=== PATIENT | male | born 1955 | race Caucasian/White ===

== ENCOUNTER 2022-07-21 07:09 | Emergency (ER) | payer MEDICARE, BC ==
[~2022-07-21 07:09] MED LIST: Etomidate 2 MG/ML 10 ML SDV IVPUSH ONE
[2022-07-21] MEDS ORDERED: Sodium Chloride 0.9% 1,000 ML IV ONE (07:15)
[2022-07-21] MEDS: Etomidate 2 MG/ML 10 ML SDV ONE ×2 (07:16→09:29)
[2022-07-21] MEDS ORDERED: Succinylcholine 200 MG/10 ML MDV IV ONE (07:17)
[2022-07-21] MEDS ORDERED: Sodium Chloride 0.9% 10 ML Syringe FLUSH PRN (07:17)
[2022-07-21] MEDS: Sodium Chloride 0.9% 1,000 ML ONE (07:18)
[2022-07-21 07:27] LABS: BASOPHILS ABSOLUTE AUTO 0.04 10^3/uL (0.00-0.10); BASOPHILS PERCENT AUTO 0.2 % (0.0-1.0); EOSINOPHILS ABSOLUTE AUTO 0.01 10^3/uL (0.10-0.30); HEMATOCRIT 33.6 % (40.0-52.0); HEMOGLOBIN 10.6 g/dL (13.0-17.0); IMMATURE GRAN PERCENT AUTO 0.4 % (0.0-5.0); LYMPHOCYTES ABSOLUTE AUTO 2.96 10^3/uL (1.00-4.00); MEAN CORPUSCULAR HEMOGLOBIN 28.1 pg (27.0-31.0); MEAN CORPUSCULAR HGB CONC 31.5 g/dL (32.0-36.0); MEAN CORPUSCULAR VOLUME 89.1 fL (82.0-92.0); MEAN PLATELET VOLUME 10.4 fL (7.4-10.4); MONOCYTES ABSOLUTE AUTO 2.26 10^3/uL (0.10-0.80); MONOCYTES PERCENT AUTO 9.9 % (2.0-8.0); NEUTROPHILS ABSOLUTE AUTO 17.39 10^3/uL (2.50-7.00); NEUTROPHILS PERCENT AUTO 76.5 % (50.0-70.0); PLATELET COUNT,PLT 306 10^3/uL (150-400); RED BLOOD CELL COUNT 3.77 10^6/uL (4.50-6.00); RED CELL DISTRIBUTION WIDTH 12.4 % (11.5-14.5); WHITE BLOOD CELL COUNT,WBC 22.76 10^3/uL (5.00-10.00)
[2022-07-21] MEDS: Midazolam 1 MG/ML 2 ML SDV IVPUSH ONE ×2 (07:37→08:13)
[2022-07-21 07:39] LABS: ALANINE AMINOTRANSFERASE,ALT 20 U/L (14-63); ALBUMIN 3.03 g/dL (3.40-5.00); ALKALINE PHOSPHATASE 59 U/L (46-116); ANION GAP 14.3 mmol/L (5-15); ASPARTATE AMNIOTRANSFERASE,AST 20 U/L (15-37); BILIRUBIN TOTAL 0.3 mg/dL (0.2-1.0); CALCIUM 7.7 mg/dL (8.7-10.3); CARBON DIOXIDE,CO2 24.5 mmol/L (21.0-32.0); CHLORIDE,CL 100 mmol/L (98-107); CREATININE 5.62 mg/dL (0.51-1.17); GLUCOSE RANDOM 298 mg/dL (70-140); POTASSIUM,K 4.8 mmol/L (3.5-5.1); PROTEIN TOTAL,TP 6.8 g/dL (6.4-8.2); SODIUM,NA 134 mmol/L (136-145)
[2022-07-21] MEDS ORDERED: fentaNYL 100 MCG/2 ML SDV ONE (07:39)
[2022-07-21] MEDS ORDERED: fentaNYL 100 MCG/2 ML SDV IVPUSH ONE (07:42)
[2022-07-21 07:44] LABS: BLOOD UREA NITROGEN,BUN 88 mg/dL (7-18); ESTIMATED GFR 11 mL/min (>=60)
[2022-07-21] MEDS ORDERED: Rocuronium 50 MG/5 ML Vial IV ONE (07:48)
[2022-07-21] MEDS ORDERED: Heparin Sodium 5,000 Units/ML Vial IVPUSH ONE (07:54)
[2022-07-21] MEDS ORDERED: Heparin Sodium/D5W 250 ML IV SCH (08:00)
[2022-07-21] MEDS ORDERED: Heparin Sodium/D5W 250 ML ONE (08:12)
[2022-07-21] MEDS ORDERED: Piperacillin/Tazobactam 4.5 GM in Sodium Chloride 0.9% 100 ML IV ONE (08:14)
[2022-07-21] MEDS ORDERED: Iopamidol 755 Mg/ML 100 ML Bottle IV ONE (08:19)
[2022-07-21] MEDS ORDERED: Sodium Chloride 0.9% 100 ML IV SCH (08:30)
[2022-07-21] MEDS ORDERED: Midazolam 1 MG/ML 2 ML SDV ONE (09:03)
[2022-07-24] MEDS: Sodium Chloride 0.9% 1,000 ML ONE (12:26)
== END 2022-07-21 08:25 ==
LOC: KA.ED 07:09
DX: R79.1 Abnormal coagulation profile (principal); R77.8 Other specified abnormalities of plasma proteins; E11.22 Type 2 diabetes mellitus with diabetic chronic kidney disease; N18.5 Chronic kidney disease, stage 5; E11.21 Type 2 diabetes mellitus with diabetic nephropathy; I10 Essential (primary) hypertension; E11.42 Type 2 diabetes mellitus with diabetic polyneuropathy; M19.90 Unspecified osteoarthritis, unspecified site; E66.9 Obesity, unspecified; Z79.4 Long term (current) use of insulin; Z79.82 Long term (current) use of aspirin; Z79.899 Other long term (current) drug therapy
CPT/HCPCS: 31500; 36415; 70450; 71045; 71275; 80053; 84484; 85025; 85379; 85730; 93010; 96374; 96375; 99284; 99285-25; J0330; J1644; J2250; J2543; J3010; J3490; J7030; Q3014; Q9967

== ENCOUNTER 2023-01-07 10:51 | Emergency (ER) | payer MEDICARE, BC ==
[2023-01-07 11:49] LABS: BASOPHILS ABSOLUTE AUTO 0.07 10^3/uL (0.00-0.10); BASOPHILS PERCENT AUTO 0.6 % (0.0-1.0); EOSINOPHILS ABSOLUTE AUTO 0.07 10^3/uL (0.10-0.30); EOSINOPHILS PERCENT AUTO 0.6 % (1.0-3.0); HEMATOCRIT 33.3 % (40.0-52.0); HEMOGLOBIN 11.2 g/dL (13.0-17.0); IMMATURE GRAN ABSOLUTE AUTO 0.02 10^3/uL (0.00-0.50); IMMATURE GRAN PERCENT AUTO 0.2 % (0.0-5.0); LYMPHOCYTES ABSOLUTE AUTO 0.86 10^3/uL (1.00-4.00); LYMPHOCYTES PERCENT AUTO 6.8 % (20.0-40.0); MEAN CORPUSCULAR HEMOGLOBIN 29.2 pg (27.0-31.0); MEAN CORPUSCULAR HGB CONC 33.6 g/dL (32.0-36.0); MEAN CORPUSCULAR VOLUME 86.7 fL (82.0-92.0); MEAN PLATELET VOLUME 8.7 fL (7.4-10.4); MONOCYTES ABSOLUTE AUTO 0.73 10^3/uL (0.10-0.80); MONOCYTES PERCENT AUTO 5.8 % (2.0-8.0); NEUTROPHILS ABSOLUTE AUTO 10.87 10^3/uL (2.50-7.00); PLATELET COUNT,PLT 173 10^3/uL (150-400); RED BLOOD CELL COUNT 3.84 10^6/uL (4.50-6.00); RED CELL DISTRIBUTION WIDTH 13.8 % (11.5-14.5); WHITE BLOOD CELL COUNT,WBC 12.62 10^3/uL (5.00-10.00)
[2023-01-07 12:05] LABS: ALANINE AMINOTRANSFERASE,ALT 19 U/L (14-63); ALBUMIN 2.91 g/dL (3.40-5.00); ALKALINE PHOSPHATASE 87 U/L (46-116); ANION GAP 16.2 mmol/L (5-15); ASPARTATE AMNIOTRANSFERASE,AST 18 U/L (15-37); BILIRUBIN TOTAL 0.5 mg/dL (0.2-1.0); CALCIUM 8.8 mg/dL (8.7-10.3); CARBON DIOXIDE,CO2 25.6 mmol/L (21.0-32.0); CHLORIDE,CL 100 mmol/L (98-107); CREATININE 7.27 mg/dL (0.51-1.17); GLUCOSE RANDOM 170 mg/dL (70-140); POTASSIUM,K 3.8 mmol/L (3.5-5.1); PROTEIN TOTAL,TP 6.9 g/dL (6.4-8.2); SODIUM,NA 138 mmol/L (136-145)
[2023-01-07 12:10] LABS: B-TYPE NATRIURETIC PEPTIDE,BNP 2620 pg/mL (0-100)
[2023-01-07 12:12] LABS: BLOOD UREA NITROGEN,BUN 61 mg/dL (7-18); ESTIMATED GFR 8 mL/min (>=60)
[2023-01-07 12:43] LABS: INR 2.8 (0.9-1.1)
[2023-01-07 13:11] LABS: PTT,PARTIAL THROMBOPLSTIN TIME 48.6 SEC (22.8-31.4)
== END 2023-01-07 17:10 ==
LOC: KA.ED 10:51
DX: I50.9 Heart failure, unspecified (principal); N18.6 End stage renal disease; Z99.2 Dependence on renal dialysis; M19.90 Unspecified osteoarthritis, unspecified site; E11.9 Type 2 diabetes mellitus without complications; E66.9 Obesity, unspecified; Z68.29 Body mass index [BMI] 29.0-29.9, adult; Z79.899 Other long term (current) drug therapy; Z79.82 Long term (current) use of aspirin; Z79.84 Long term (current) use of oral hypoglycemic drugs; Z88.8 Allergy status to other drugs, medicaments and biological substances; Z88.7 Allergy status to serum and vaccine
CPT/HCPCS: 36415; 71046; 80053; 82947; 83605; 83880; 84484; 85025; 85610; 85730; 93010; 99284; 99285

== ENCOUNTER 2023-02-16 01:42 | Emergency (ER) | payer MEDICARE, BC ==
[2023-02-16] MEDS ORDERED: EPINEPHrine 1:10,000 1 MG/10 ML Syringe IVPUSH ONE ×2 (01:45→01:48)
== END 2023-02-16 02:47 | disposition expired ==
LOC: KA.ED 01:42
DX: I46.9 Cardiac arrest, cause unspecified; Z88.8 Allergy status to other drugs, medicaments and biological substances; Z88.7 Allergy status to serum and vaccine
CPT/HCPCS: 92950; 99284; 99285-25; J0171